=== PATIENT | male | born 1945 | race Caucasian/White ===

== ENCOUNTER 2020-06-16 08:08 | Emergency (ER) | payer MEDICARE, BC | END 2020-06-16 08:29 | disposition left against medical advice (07) | LOC: ED 08:08 | DX: Z53.9 Procedure and treatment not carried out, unspecified reason (principal) | CPT/HCPCS: 99281 ==

== ENCOUNTER 2020-06-22 10:18 | Emergency (ER) | payer MEDICARE, BC ==
--- NOTE | 2020-06-22 10:34 | ERPHSYRPT ---
- History of Present Illness Time Seen by Provider: 06/22/20 10:33 Source: patient, family Exam Limitations: no limitations Physician History: This is a 75-year-old diabetic white male patient of Dr. Greenfield who presents with approximately 2 weeks of increasing weakness, intermittent fevers and decreased oral intake. Patient has myalgias and arthralgias. He has had e xposure to family member with a positive COVID-19 test several days ago. Patient has not had any vomiting or diarrhea but has occasional nausea. He has had no chest pain no significant shortness of breath or abdominal pain. Overall, he states he just feels weak and does not feel well. He was seen here on 06/16/2020 but left without being seen. In discussing this, he said that he was attempting to get a COVID-19 test but was sent to the respiratory clinic who then denied him the test because they felt he did not meet the criteria for 1. Patient spouse says that he has some mild, early dementia but during the last couple of weeks he has been having periods of confusion. Timing/Duration: week(s) (Approximately 2 weeks) Fever Severity: gone Associated Symptoms: confusion (Intermittent and increasing per patient's spouse), muscle aches, weakness, No abdominal pain, No chest pain Allergies/Adverse Reactions: No Known Drug Allergies Allergy (Unverified 06/22/20 10:37) Home Medications: Aspirin EC 81 mg [Ecotrin 81 mg] 81 mg PO DAILY 06/22/20 [History] Losartan Potassium 100 mg PO DAILY 06/22/20 [History] Metformin HCl 500 mg [Glucophage 500 MG] 1,000 mg PO DAILY 06/22/20 [History] Metoprolol Tartrate 25 mg [Lopressor 25MG Tab] 50 mg PO DAILY 06/22/20 [History] Pravastatin Sodium 40 mg PO DAILY 06/22/20 [History] Travel Risk - International Travel Have you traveled outside of the country in past 3 weeks: No - Coronavirus Screening Are you exhibiting any of the following symptoms?: Yes Symptoms: Headaches/Body Aches/Fatigue Close contact with a COVID-19 positive Pt in past 14-21 Days: Yes - Review of Systems Constitutional: Fever, Weakness Eyes: No Symptoms Ears, Nose, & Throat: No Symptoms Respiratory: No Symptoms Cardiac: No Symptoms Abdominal/Gastrointestinal: Nausea, No Abdominal Pain, No Vomiting, No Diarrhea Genitourinary Symptoms: No Symptoms Musculoskeletal: Arthralgias, Myalgias Skin: No Symptoms Neurological: Other (Has had intermittent confusion in the last 2 weeks) Psychological: No Symptoms Endocrine: No Symptoms Hematologic/Lymphatic: No Symptoms Immunological/Allergic: No Symptoms All Other Systems: Reviewed and Negative - Past Medical History Pertinent Past Medical History: Yes Neurological History: Dementia ENT History: No Pertinent History Cardiac History: Hypertension Respiratory History: No Pertinent History Endocrine Medical History: Diabetes Type II Musculoskeletal History: No Pertinent History GI Medical History: No Pertinent History History: No Pertinent History Psycho-Social History: No Pertinent History Male Reproductive Disorders: No Pertinent History - Past Surgical History Neuro Surgical History: No Pertinent History Cardiac: No Pertinent History Respiratory: No Pertinent History Gastrointestinal: No Pertinent History Genitourinary: No Pertinent History Musculoskeletal: No Pertinent History Male Surgical History: No Pertinent History - Nursing Vital Signs Nursing Vital Signs: Initial Vital Signs Temperature 97.8 F 06/22/20 10:28 Pulse Rate 83 06/22/20 10:28 Respiratory Rate 16 06/22/20 10:28 Blood Pressure 157/110 06/22/20 10:28 O2 Sat by Pulse Oximetry 96 06/22/20 10:28 Pain Scale Pain Intensity 0 - Physical Exam General Appearance: no apparent distress, alert, anxiety Eye Exam: PERRL/EOMI, eyes nml inspection ENT Exam: normal ENT inspection, no apparent trauma, hearing grossly normal Neck Exam: normal inspection, non-tender, supple, full range of motion, trachea midline Respiratory Exam: normal breath sounds, chest non-tender, lungs clear, no respiratory distress, no accessory muscle use Cardiovascular/Chest Exam: normal heart sounds, regular rate/rhythm, murmur Gastrointestinal/Abdominal Exam: soft, non tender, no distention, no mass, no guarding, no ecchymosis, no organomegaly, no pulsatile mass, normal bowel sounds Rectal Exam: not done Extremity Exam: non-tender, normal range of motion, normal inspection, no calf tenderness, no pedal edema, pelvis stable Neurologic Exam: alert, oriented x 3, cooperative, sales promotion manager II-XII nml as tested, normal mood/affect, nml cerebellar function, nml station & gait, sensation nml Skin Exam: normal color, warm, dry Lymphatic: No adenopathy SpO2 Interpretation: normal O2 Delivery: Room Air - Course Nursing assessment & vital signs reviewed: Yes EKG Interpreted by Me: RATE (98), Sinus Rhythm, NORMAL AXIS, NORMAL INTERVALS, NORMAL QRS, NORMAL ST-T, Other (No acute ischemic changes. No comparison EKG available.) Ordered Tests: Active Orders 24 hr Category Date Time Status Heat Treater Helper STAT Care 06/22/20 10:50 Active EKG-ER Only STAT Care 06/22/20 10:49 Active IV Insertion STAT Care 06/22/20 10:49 Active Isolation, Initiate & Maintain STAT Care 06/22/20 10:50 Active Pulse Oximetry (ED) ROUTINE Care 06/22/20 10:50 Active CHEST 1 VIEW (PORTABLE) Stat Exams 06/22/20 10:51 Completed HEAD WITHOUT CONTRAST [CT] Stat Exams 06/22/20 11:00 Completed BLOOD CULTURE Stat Lab 06/22/20 11:20 Received CBC W DIFF Stat Lab 06/22/20 11:20 Completed CMP Stat Lab 06/22/20 11:20 Completed Ferritin Stat Lab 06/22/20 11:20 Completed INFLUENZA A+B RAFAEL Stat Lab 06/22/20 11:20 Completed LDH-LACTATE DEHYDROGENASE Stat Lab 06/22/20 11:20 Completed Lactic Acid Stat Lab 06/22/20 11:20 Completed Manual Differential NC Stat Lab 06/22/20 11:20 Completed [place] Screen Stat Lab 06/22/20 11:20 Completed PROTIME WITH INR Stat Lab 06/22/20 11:20 Received TROPONIN Q3H Lab 06/22/20 11:20 Completed TROPONIN Q3H Lab 06/22/20 14:00 Ordered TROPONIN Q3H Lab 06/22/20 17:00 Ordered TROPONIN Q3H Lab 06/22/20 20:00 Ordered TROPONIN Q3H Lab 06/22/20 23:00 Ordered Medication Summary Discontinued Medications Generic Name Dose Route Start Last Admin Trade Name Freq PRN Reason Stop Dose Admin Sodium Chloride 1,000 mls @ 999 mls/hr 06/22/20 10:49 06/22/20 12:14 Sodium Chloride 0.9% 1000 Ml IV 06/22/20 11:49 Infused .Q1H1M STA Infusion Sodium Chloride Confirm 06/22/20 10:57 Sodium Chloride 0.9% 1000 Ml Administered 06/22/20 10:58 Dose 1,000 mls @ ud .ROUTE .STK-MED ONE Ceftriaxone Sodium/Dextrose 1 g in 50 mls @ 100 mls/hr 06/22/20 12:12 06/22/20 12:18 Rocephin 1 Gm-D5w 50 Ml Bag IV 06/22/20 12:41 100 mls/hr STAT STA 100 mls/hr Administration Ceftriaxone Sodium/Dextrose Confirm 06/22/20 12:15 Rocephin 1 Gm-D5w 50 Ml Bag Administered 06/22/20 12:16 Dose 1 g in 50 mls @ ud IV .STK-MED ONE Ondansetron HCl 4 mg 06/22/20 10:49 06/22/20 11:00 Zofran 4 Mg/2 Ml Vial IV 06/22/20 10:50 4 mg STAT ONE Administration Ondansetron HCl Confirm 06/22/20 10:57 Zofran 4 Mg/2 Ml Vial Administered 06/22/20 10:58 Dose 4 mg .ROUTE .STK-MED ONE Lab/Rad Data: Laboratory Result Diagrams 06/22/20 11:20 06/22/20 11:20 Laboratory Results 06/22/20 06/22/20 06/22/20 Range/Units 11:20 11:20 11:20 WBC (4.0-10.5) K/mm3 RBC (4.1-5.6) M/mm3 Hgb (12.5-18.0) gm/dl Hct (42-50) % MCV (78-100) fl MCH (26-32) pg MCHC (32-36) g/dl RDW (11.5-14.0) % Plt Count (150-450) K/mm3 MPV (7.5-11.0) fl Segmented Neutrophils (36.-66.) % Lymphocytes (Manual) (24-44) % Monocytes (Manual) (0.0-12.0) % Eosinophils (Manual) (0.00-3.0) % Platelet Estimate (NORMAL) RBC Morphology Sodium (137-145) mmol/L Potassium (3.5-5.1) mmol/L Chloride (98-107) mmol/L Carbon Dioxide (22-30) mmol/L Anion Gap (5-15) MEQ/L BUN (9-20) mg/dL Creatinine (0.66-1.25) mg/dL Estimated GFR ML/MIN Glucose (74-106) mg/dL Lactic Acid (0.4-2.0) Calcium (8.4-10.2) mg/dL Ferritin 154 (17.9-464) ng/mL Total Bilirubin (0.2-1.3) mg/dL AST (17-59) U/L ALT (0-50) U/L Alkaline Phosphatase (38-126) U/L Ammonia < 9 L (9-30) umol/L Lactate Dehydrogenase (120-246) U/L Troponin I (0.000-0.034) ng/mL Serum Total Protein (6.3-8.2) g/dL Albumin (3.5-5.0) g/dL Monoscreen NEGATIVE (Negative) Influenza Type A Ag (NEGATIVE) Influenza Type B Ag (NEGATIVE) Group A Strep Antibody (NEGATIVE) 06/22/20 06/22/20 06/22/20 Range/Units 11:20 11:20 11:20 WBC (4.0-10.5) K/mm3 RBC (4.1-5.6) M/mm3 Hgb (12.5-18.0) gm/dl Hct (42-50) % MCV (78-100) fl MCH (26-32) pg MCHC (32-36) g/dl RDW (11.5-14.0) % Plt Count (150-450) K/mm3 MPV (7.5-11.0) fl Segmented Neutrophils (36.-66.) % Lymphocytes (Manual) (24-44) % Monocytes (Manual) (0.0-12.0) % Eosinophils (Manual) (0.00-3.0) % Platelet Estimate (NORMAL) RBC Morphology Sodium (137-145) mmol/L Potassium (3.5-5.1) mmol/L Chloride (98-107) mmol/L Carbon Dioxide (22-30) mmol/L Anion Gap (5-15) MEQ/L BUN (9-20) mg/dL Creatinine (0.66-1.25) mg/dL Estimated GFR ML/MIN Glucose (74-106) mg/dL Lactic Acid (0.4-2.0) Calcium (8.4-10.2) mg/dL Ferritin (17.9-464) ng/mL Total Bilirubin (0.2-1.3) mg/dL AST (17-59) U/L ALT (0-50) U/L Alkaline Phosphatase (38-126) U/L Ammonia (9-30) umol/L Lactate Dehydrogenase (120-246) U/L Troponin I < 0.012 (0.000-0.034) ng/mL Serum Total Protein (6.3-8.2) g/dL Albumin (3.5-5.0) g/dL Monoscreen (Negative) Influenza Type A Ag NEGATIVE (NEGATIVE) Influenza Type B Ag NEGATIVE (NEGATIVE) Group A Strep Antibody NOT DETECTED (NEGATIVE) 06/22/20 06/22/20 06/22/20 Range/Units 11:20 11:12 06: WBC 4.9 (4.0-10.5) K/mm3 RBC 4.50 (4.1-5.6) M/mm3 Hgb 13.8 (12.5-18.0) gm/dl Hct 41.9 L (42-50) % MCV 93.1 (78-100) fl MCH 30.7 (26-32) pg MCHC 32.9 (32-36) g/dl RDW 12.4 (11.5-14.0) % Plt Count 179 (150-450) K/mm3 MPV 10.5 (7.5-11.0) fl Segmented Neutrophils 85 H (36.-66.) % Lymphocytes (Manual) 12 L (24-44) % Monocytes (Manual) 2 (0.0-12.0) % Eosinophils (Manual) 1 (0.00-3.0) % Platelet Estimate NORMAL (NORMAL) RBC Morphology NORMAL Sodium 139 (137-145) mmol/L Potassium 3.6 (3.5-5.1) mmol/L Chloride 104 (98-107) mmol/L Carbon Dioxide 24 (22-30) mmol/L Anion Gap 15.2 H (5-15) MEQ/L BUN 18 (9-20) mg/dL Creatinine 0.65 L (0.66-1.25) mg/dL Estimated GFR > 60.0 ML/MIN Glucose 96 (74-106) mg/dL Lactic Acid 1.3 (0.4-2.0) Calcium 9.0 (8.4-10.2) mg/dL Ferritin (17.9-464) ng/mL Total Bilirubin 0.90 (0.2-1.3) mg/dL AST 35 (17-59) U/L ALT 22 (0-50) U/L Alkaline Phosphatase 54 (38-126) U/L Ammonia (9-30) umol/L Lactate Dehydrogenase 255 H (120-246) U/L Troponin I (0.000-0.034) ng/mL Serum Total Protein 7.5 (6.3-8.2) g/dL Albumin 4.2 (3.5-5.0) g/dL Monoscreen (Negative) Influenza Type A Ag (NEGATIVE) Influenza Type B Ag (NEGATIVE) Group A Strep Antibody (NEGATIVE) - Progress Progress: improved, re-examined Progress Note: 06/22/20 12:53 Chest x-ray shows mild bibasilar infiltrates versus atelectasis. The CAT scan of his head without contrast shows a senile brain without any acute intracranial abnormalities. 06/22/20 12:54 Patient states he wants to go home. He states he is feeling better. He has no chest pain or shortness of breath at this time. He has no abdominal pain. He does not want to come into the hospital and does not want to be transferred to another hospital. Counseled pt/family regarding: lab results, diagnosis, need for follow-up, rad results - Departure Departure Disposition: Home Clinical Impression: Infiltrate of lung present on chest x-ray Condition: Stable Critical Care Time: No Referrals: GIL GREENFIELD [Primary Care Provider] - Additional Instructions: Drink plenty of fluids. Take your medication as prescribed. Return to the emergency department if your symptoms worsen. Quarantine yourself until your COVID-19 test has returned. Follow-up with your primary care physician for persistent symptoms. Prescriptions: Levofloxacin [Levaquin 500 MG Tablet] 500 mg PO DAILY #7 tablet
[2020-06-22] MEDS ORDERED: Sodium Chloride 0.9% 1000 ML 1,000 ML IV STA (10:49)
[2020-06-22] MEDS ORDERED: Zofran 4 MG/2 ML VIAL IV ONE (10:49)
[2020-06-22] MEDS ORDERED: Zofran 4 MG/2 ML VIAL ONE (10:57)
[2020-06-22] MEDS ORDERED: Sodium Chloride 0.9% 1000 ML 1,000 ML ONE (10:57)
[2020-06-22 11:37] LABS: Hematocrit 41.9 % (42-50); Hemoglobin 13.8 gm/dl (12.5-18.0); Mean Cell Volume 93.1 fl (78-100); Mean Corpuscular Hemoglobin 30.7 pg (26-32); Mean Corpuscular Hgb Concent. 32.9 g/dl (32-36); Mean Platelet Volume 10.5 fl (7.5-11.0); Platelet Count 179 K/mm3 (150-450); Red Cell Distribution Width 12.4 % (11.5-14.0); White Blood Count 4.9 K/mm3 (4.0-10.5)
--- NOTE | 2020-06-22 11:43 | XRAY ---
Indication: Fever. Comparison: None Portable chest demonstrates mild bibasilar infiltrates versus atelectasis and tiny right effusion. Remaining heart and lungs unremarkable. Bony thorax intact with mild degenerative changes.
--- NOTE | 2020-06-22 11:45 | XRAY ---
Indication: Confusion. Multiple contiguous axial images obtained through the head without contrast. Comparison: None Age-appropriate global atrophy and minimal periventricular degenerative microischemia. 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 No acute intracranial hemorrhage, abnormal extra-axial fluid collection, or mass effect. Fourth ventricle is midline without hydrocephalus. Silverio-white matter differentiation preserved. Bony calvarium intact. Visualized paranasal sinuses and mastoid air cells are clear. Impression: Nonacute senile brain.
[2020-06-22 11:55] LABS: INR 1.25 (0.8-3.0); PROTIME 14.2 SECONDS (8.83-12.87)
[2020-06-22 11:56] LABS: Eosinophil 1 % (0.00-3.0); Lymphocytes 12 % (24-44); Monocyte 2 % (0.0-12.0); Neutrophils 85 % (36.-66.); Platelet Estimate NORMAL (NORMAL); Total Cells Counted 100
[2020-06-22 12:00] LABS: ALBUMIN 4.2 g/dL (3.5-5.0); ALKALINE PHOSPHATASE 54 U/L (38-126); ANION GAP 15.2 MEQ/L (5-15); BLOOD UREA NITROGEN 18 mg/dL (9-20); CHLORIDE 104 mmol/L (98-107); Carbon Dioxide 24 mmol/L (22-30); Creatinine 1 0.65 mg/dL (0.66-1.25); EST GLOMERULAR FILTRATION RATE > 60.0 ML/MIN; Glucose 96 mg/dL (74-106); LDH-LACTATE DEHYDROGENASE 255 U/L (120-246); Potassium 3.6 mmol/L (3.5-5.1); SGOT/AST 35 U/L (17-59); SGPT/ALT 22 U/L (0-50); SODIUM 139 mmol/L (137-145); Total Protein 7.5 g/dL (6.3-8.2)
[2020-06-22 12:02] LABS: INFLUENZA A NEGATIVE (NEGATIVE); INFLUENZA B NEGATIVE (NEGATIVE)
[2020-06-22] MEDS ORDERED: ROCEPHIN 1 Gm-D5w 50 ml Bag** 1 G/50 ML IVPB IV STA (12:12)
[2020-06-22] MEDS ORDERED: ROCEPHIN 1 Gm-D5w 50 ml Bag** 1 G/50 ML IVPB IV ONE (12:15)
[2020-06-22] MEDS ORDERED: Sodium Chloride 0.9% 500 ML 500 ML IV ONE ×2 (12:56→12:57)
[2020-06-22 13:02] VITALS: PULSE 81
[2020-06-22 14:07] VITALS: BP 145/94; O2SAT 94
== END 2020-06-22 14:25 | disposition home or self-care (01) ==
LOC: ED 10:18
DX: R91.8 Other nonspecific abnormal finding of lung field (principal); M79.10 Myalgia, unspecified site; R41.0 Disorientation, unspecified; E11.9 Type 2 diabetes mellitus without complications; Z79.4 Long term (current) use of insulin
CPT/HCPCS: 36000; 36415; 70450; 71045; 80053; 82140; 82728; 83605; 83615; 84484; 85025; 85610; 86308; 87040; 87400; 87651; 93005; 93041; 94760; 96360; 96361; 96365; 96374; 99285; U0003; J0696; J2405